=== PATIENT | female | born 1960 | race Caucasian/White ===

== ENCOUNTER 2017-07-01 19:01 | Emergency (ER) | payer BC ==
--- NOTE | 2017-07-01 19:37 | EDM.PDOC ---
ED HPI GENERAL MEDICAL PROBLEM - General Chief Complaint: Gastrointestinal Problem Stated Complaint: VOMITING/DIARRHEA Time Seen by Provider: 07/01/17 19:37 - History of Present Illness INITIAL COMMENTS - FREE TEXT/NARRATIVE: 57-year-old female presents emergency room with nausea vomiting and diarrhea. This started a little over 24 hours ago patient has had frequent nausea vomiting and earlier today developed significant diarrhea loose watery stools. This is not associated with much pain the patient is developing a lot of fatigue and is just absolutely worn out and tired at this point. The patient does not have any breathing difficulties or shortness of breath no significant abdominal discomfort no bloody diarrhea. Abdominal Pain Score (Numeric/FACES): 5 - Related Data Allergies Allergy/AdvReac Type Severity Reaction Status Date / Time No Known Allergies Allergy Verified 07/01/17 19:14 ED ROS GENERAL - Review of Systems Review Of Systems: See Below Constitutional: Reports: Malaise, Weakness, Diaphoresis, Decreased Appetite. Denies: Fever, Chills HEENT: Reports: No Symptoms Respiratory: Reports: No Symptoms Cardiovascular: Reports: No Symptoms. Denies: Chest Pain Endocrine: Reports: No Symptoms GI/Abdominal: Reports: Anorexia, Diarrhea, Nausea, Vomiting. Denies: No Symptoms, Black Stool, Bloody Stool : Reports: No Symptoms Musculoskeletal: Reports: No Symptoms Skin: Reports: No Symptoms Neurological: Reports: No Symptoms Psychiatric: Reports: No Symptoms ED EXAM, GI/ABD - Physical Exam Exam: See Below Exam Limited By: No Limitations General Appearance: Alert, No Apparent Distress Eyes: Bilateral: Normal Appearance Ears: Normal External Exam, Normal Canal, Hearing Grossly Normal, Normal TMs Nose: Normal Inspection, Normal Mucosa, No Blood Throat/Mouth: Normal Inspection, Normal Lips, Normal Teeth, Normal Gums, Normal Oropharynx, Normal Voice, No Airway Compromise, Other (Semi-moist mucosa) Head: Atraumatic, Normocephalic Neck: Normal Inspection, Supple, Non-Tender, Full Range of Motion Respiratory/Chest: No Respiratory Distress, Lungs Clear, Normal Breath Sounds Cardiovascular: Regular Rate, Rhythm, No Edema, No Murmur GI/Abdominal Exam: Normal Bowel Sounds, Soft, Non-Tender Back Exam: Normal Inspection. No: CVA Tenderness (L), CVA Tenderness (R) Extremities: Normal Inspection, No Pedal Edema Psychiatric: Normal Affect, Normal Mood Skin Exam: Warm, Dry, Intact, Normal Color, No Rash Lymphatic: No Adenopathy Course - Vital Signs Last Recorded V/S: Last Vital Signs Temp 36.2 C 07/01/17 19:14 Pulse 97 07/01/17 19:14 Resp 20 07/01/17 19:14 BP 130/51 L 07/01/17 19:14 Pulse Ox 100 07/01/17 19:14 - Orders/Labs/Meds Labs: Laboratory Tests 07/01/17 07/01/17 07/01/17 Range/Units 19:40 19:40 21:05 WBC 12.43 H (3.98-10.04) K/mm3 RBC 5.10 (3.98-5.22) M/mm3 Hgb 15.1 (11.2-15.7) gm/L Hct 43.9 (34.1-44.9) % MCV 86.1 (79.4-94.8) fl MCH 29.6 (25.6-32.2) pg MCHC 34.4 (32.2-35.5) g/dl RDW Std Deviation 44.1 (36.4-46.3) fL Plt Count 268 (182-369) K/mm3 MPV 9.8 (9.4-12.3) fl Neutrophils % (Manual) 77 H (40-60) % Band Neutrophils % 1 (0-10) % Lymphocytes % (Manual) 17 L (20-40) % Atypical Lymphs % 0 % Monocytes % (Manual) 5 (2-10) % Eosinophils % (Manual) 0 L (0.7-5.8) % Basophils % (Manual) 0 L (0.1-1.2) Platelet Estimate Adequate Plt Morphology Comment Normal RBC Morph Comment Normal Sodium 139 (136-145) mEq/L Potassium 3.2 L (3.5-5.1) mEq/L Chloride 101 (98-107) mEq/L Carbon Dioxide 26 (21-32) mEq/L Anion Gap 15.2 H (5-15) BUN 21 H (7-18) mg/dL Creatinine 1.1 H (0.55-1.02) mg/dL Est Cr Clr Drug Dosing 48.73 mL/min Estimated GFR (MDRD) 51 (>60) mL/min BUN/Creatinine Ratio 19.1 H (14-18) Glucose 125 H (74-106) mg/dL Calcium 9.3 (8.5-10.1) mg/dL Total Bilirubin 0.8 (0.2-1.0) mg/dL AST 35 (15-37) U/L ALT 54 (14-59) U/L Alkaline Phosphatase 89 (46-116) U/L Total Protein 7.9 (6.4-8.2) g/dl Albumin 3.8 (3.4-5.0) g/dl Globulin 4.1 gm/dL Albumin/Globulin Ratio 0.9 L (1-2) Lipase 54 L (73-393) U/L Urine Color Yellow (Yellow) Urine Appearance Clear (Clear) Urine pH 6.0 (5.0-8.0) Ur Specific [place] 1.020 (1.005-1.030) Urine Protein 1+ H (Negative) Urine Glucose (UA) Negative (Negative) Urine Ketones 3+ H (Negative) Urine Occult Blood 2+ H (Negative) Urine Nitrite Negative (Negative) Urine Bilirubin 1+ H (Negative) Urine Urobilinogen 0.2 (0.2-1.0) Ur Leukocyte Esterase 1+ H (Negative) Urine RBC 20-30 H (0-5) /hpf Urine WBC 30-40 H (0-5) /hpf Ur Epithelial Cells 10-20 H (0-5) /hpf Urine Bacteria Moderate H (FEW) /hpf Urine Mucus Moderate H (FEW) /hpf Meds: Medications Discontinued Medications Generic Name Dose Route Start Last Admin Trade Name Freq PRN Reason Stop Dose Admin Lactated Ringer's 1,000 mls @ 999 mls/hr 07/01/17 19:44 07/01/17 19:55 Ringers, Lactated IV 07/01/17 20:44 999 mls/hr .BOLUS ONE Administration Ondansetron HCl 4 mg 07/01/17 19:44 07/01/17 19:55 Zofran IVPUSH 07/01/17 19:45 4 mg ONETIME ONE Administration Ondansetron HCl 4 mg 07/01/17 22:16 07/01/17 22:19 Zofran IVPUSH 07/01/17 22:17 4 mg ONETIME ONE Administration Potassium Chloride 40 meq 07/01/17 21:52 07/01/17 22:16 Klor-Con M20 PO 07/01/17 21:53 40 meq ONETIME ONE Administration - Re-Assessments/Exams Free Text/Narrative Re-Assessment/Exam: 07/01/17 22:22 Patient is doing much better after receiving Zofran and IV fluids. Her potassium is a little low give her 40 mEq potassium she is comfortable going home at this time as long as she has some Zofran to go home with. Departure - Departure Time of Disposition: 22:23 Disposition: Home, Self-Care 01 Condition: Good Clinical Impression: Acute gastroenteritis - Discharge Information Referrals: Leslye Santillan [employer] [Primary Care Provider] - Forms: ED Department Discharge Additional Instructions: Return to the emergency room with any questions problems worsening symptoms. Clear liquid diet for the next 12 hours and slowly advance as tolerated. You been given Zofran 4 mg tablets from the machine out in the waiting room. Use 1 every 4 hours as needed for nausea and vomiting. 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 This works very well for the loose stools. Follow-up with your regular provider early next week if needed.
[2017-07-01] MEDS ORDERED: Ondansetron 4 MG/2 ML SDV IVPUSH ONE ×2 (19:44→22:16)
[2017-07-01] MEDS ORDERED: Lactated Ringers 1,000 ML IV ONE (19:44)
[2017-07-01] MEDS ORDERED: Potassium Chloride 20 MEQ Tab.ER PO ONE (21:52)
== END 2017-07-01 23:00 | disposition home or self-care (01) ==
LOC: JD.ED 19:01
DX: K52.9 Noninfective gastroenteritis and colitis, unspecified (principal)
CPT/HCPCS: 36415; 80053; 81001; 83690; 85025; 87804; 96361; 96374; 96376; 99284; A9270; J2405; J7120